=== PATIENT | female | born 1990 | race Caucasian/White ===

== ENCOUNTER 2020-08-14 12:07 | Outpatient (CLI) | payer OTHER, SELFPAY ==
[2020-08-14 12:46] LABS: Anion Gap 4 mmol/L (8-16); Blood Urea Nitrogen 12 mg/dL (7-17); Calcium 9.3 mg/dL (8.4-10.2); Carbon Dioxide 30 mmol/L (22-30); Chloride 104 mmol/L (98-107); Cholesterol 231 mg/dL (0-200); Estimated Glomerular Filt Rate > 60; Glucose 94 mg/dL (65-105); HDL Direct 48 mg/dL; Sodium 138 mmol/L (137-145); Triglycerides 143 mg/dL (<150)
[2020-08-14 12:58] LABS: LDL Cholesterol Direct 147 mg/dL
[2020-08-14 13:38] LABS: Vitamin D 25 Hydroxy 25.5 ng/mL
== END 2020-08-14 12:08 | disposition home or self-care (01) ==
PROVIDERS: PCP Family Medicine; Visit Provider Nurse Practitioner Family
DX: R53.83 Other fatigue (principal); Z13.1 Encounter for screening for diabetes mellitus; Z13.29 Encounter for screening for other suspected endocrine disorder; E55.9 Vitamin D deficiency, unspecified; Z13.220 Encounter for screening for lipoid disorders; L65.9 Nonscarring hair loss, unspecified
CPT/HCPCS: 36415; 80048; 80061; 82306; 82607; 84443

== ENCOUNTER 2020-08-21 15:32 | Outpatient (CLI) | payer OTHER, SELFPAY | END 2020-08-21 15:33 | disposition home or self-care (01) | LOC: ANHCOVIDVC 15:32 | PROVIDERS: PCP Family Medicine | DX: Z23 Encounter for immunization (principal) | CPT/HCPCS: 0001A; 91300 ==

== ENCOUNTER 2020-09-11 15:29 | Outpatient (CLI) | payer OTHER, SELFPAY | END 2020-09-11 15:30 | disposition home or self-care (01) | LOC: ANHCOVIDVC 15:30 | PROVIDERS: PCP Family Medicine | DX: Z23 Encounter for immunization (principal) | CPT/HCPCS: 0002A; 91300 ==

== ENCOUNTER 2020-12-11 13:00 | Outpatient (CLI) | payer OTHER, SELFPAY ==
--- NOTE | ~2020-12-11 | XR_ITS ---
EXAMINATION:XR_[id number]_CR DATE: 12/11/2020 13:15 INDICATION: Neck pain TECHNIQUE: AP, lateral, and odontoid views of the cervical spine are provided. COMPARISON: None FINDINGS: Alignment is normal. The odontoid is intact. No fracture is identified. Vertebral body heig hts and disk spaces are normal. Prevertebral soft tissues are normal. IMPRESSION: 1. Unremarkable cervical spine. Reviewed, dictated and finalized at location B.
== END 2020-12-11 13:01 | disposition home or self-care (01) ==
PROVIDERS: PCP Family Medicine; Visit Provider Nurse Practitioner Family
DX: M54.2 Cervicalgia (principal)
CPT/HCPCS: 72040

== ENCOUNTER 2021-08-20 11:52 | Outpatient (CLI) | payer OTHER, SELFPAY ==
[2021-08-20 12:31] LABS: Basophils Percent Auto 0.3 % (0.2-1.2); Eosinophils Absolute Auto 0.1 K/mm3 (0-0.3); Eosinophils Percent Auto 1.1 % (0-4.4); Hematocrit 33.1 % (37.0-47.0); Hemoglobin 10.6 g/dL (12.0-15.0); Immature Granulocyte Absolute 0.04 K/mm3 (0.00-0.031); Immature Granulocyte Percent A 0.5 % (0-0.5); Lymphocytes Absolute Auto 1.44 K/mm3 (0.9-3.2); Lymphocytes Percent Auto 16.5 % (18.3-44.2); Mean Corpuscular Hemoglobin 28.1 pg (26-34); Mean Corpuscular Volume 87.8 fl (80-100); Mean Platelet Volume 10.5 fl (7.4-10.4); Monocytes Absolute Auto 0.7 K/mm3 (0.1-0.6); Monocytes Percent Auto 8.2 % (2.6-8.5); Neutrophils Absolute Auto 6.4 K/mm3 (1.3-6.7); Neutrophils Percent Auto 73.4 % (45.5-73.1); Platelet Count Result 345 k/mm3 (150-375); Red Blood Count 3.77 M/mm3 (4.2-5.4); Red Cell Distribution Width 14.9 % (11.5-14.5); White Blood Count 8.7 K/mm3 (4.5-10.0)
[2021-08-20 12:50] LABS: Anion Gap 7 mmol/L (8-16); Blood Urea Nitrogen 10 mg/dL (7-17); Calcium 8.9 mg/dL (8.4-10.2); Carbon Dioxide 28 mmol/L (22-30); Chloride 102 mmol/L (98-107); Estimated Glomerular Filt Rate > 60; Glucose 85 mg/dL (65-110); Potassium 3.9 mmol/L (3.4-5.0); Sodium 137 mmol/L (137-145)
== END 2021-08-20 11:53 | disposition home or self-care (01) ==
LOC: ANHLAB 11:54
PROVIDERS: PCP Family Medicine; Visit Provider Nurse Practitioner Family
DX: R10.9 Unspecified abdominal pain (principal); R31.9 Hematuria, unspecified
CPT/HCPCS: 36415; 80048; 85025

== ENCOUNTER 2021-08-20 16:20 | Outpatient (CLI) | payer OTHER, SELFPAY ==
--- NOTE | ~2021-08-20 | XR_ITS ---
EXAMINATION: XR abdomen/kub 1V DATE: 08/20/2021 16:41 INDICATION: Low to middle abdominal pain radiating to the left back TECHNIQUE: A supine view of the abdomen on 2 radiographs was obtained. COMPARISON: CT dated 04/22/2019 FINDINGS: Moderate amount of stool scattered throughout the colon. No dilated gas-filled loops of bowel to sugg est obstruction. Lung bases are clear. Heart size is normal. Bones are unremarkable. IMPRESSION: 1. Normal bowel gas pattern. Reviewed, dictated and finalized at location A. TARY COOK
== END 2021-08-20 16:21 | disposition home or self-care (01) ==
LOC: ANHIMG 16:23
PROVIDERS: PCP Family Medicine; Visit Provider Nurse Practitioner Family
DX: R10.9 Unspecified abdominal pain (principal); R31.9 Hematuria, unspecified
CPT/HCPCS: 36415; 74018; 80048; 85025

== ENCOUNTER 2021-08-25 08:24 | Outpatient (CLI) | payer OTHER, SELFPAY ==
--- NOTE | ~2021-08-25 | CT_ITS ---
EXAMINATION: CT abdomen pelvis wo con DATE: 08/25/2021 08:39 INDICATION: Hematuria, unspecified. TECHNIQUE: Computed tomography (CT) of the abdomen and pelvis was performed without intravenous contr ast. Automated exposure control and iterative reconstruction technique were employed. The dose-length product was 329.91 mGy-cm. COMPARISON: CT abdomen and pelvis 04/22/2019 FINDINGS: The visualized portions of the lung bases are clear without pneumonia or pleural effusion. The heart size is normal. No pericardial effusion. The liver, gallbladder, spleen, pancreas, adrenal glands, and kidneys are normal. There is hematoma in the pelvis centered at the left adnexa measuring 8.5 x 8.9 x 10.2 cm. There are no dilated loops of bowel. The appendix is normal. There is fat stran ding in the greater omentum, likely edema or inflammation. There are no pathologically enlarged lymph nodes. IMPRESSION: 1. Hemoperitoneum centered at the left adnexa. Reviewed, dictated and finalized at location A.
== END 2021-08-25 08:25 ==
LOC: MICIMG 08:26
PROVIDERS: PCP Family Medicine; Visit Provider Nurse Practitioner Family
DX: R10.9 Unspecified abdominal pain (principal); R31.9 Hematuria, unspecified; K66.1 Hemoperitoneum
CPT/HCPCS: 74176

== ENCOUNTER 2021-08-25 09:21 | Observation (INO) | payer OTHER, SELFPAY ==
[2021-08-25] VITALS (9 sets, daily range): BP systolic 117–131; BP diastolic 67–79; PULSE 78–106; RESP 16–18; TEMP 36.6–37.2; O2SAT 97–100; BMI 27.1
--- NOTE | ~2021-08-25 | US_ITS ---
EXAMINATION: US right upper quadrant DATE: 08/26/2021 14:51 INDICATION: Abnormal liver function tests. TECHNIQUE: Multiple grayscale and Doppler ultrasound images of the abdomen were obtained. COMPARISON: CT abdomen and pelvis 08/25/2021 FINDINGS: The visualized portions of the head and body of the pancreas are normal. The liver is minnie l without focal lesion. There is normal flow in main portal vein. The gallbladder is contracted. No g allstones. There is no sonographic Moser sign. The common duct is normal and measures 4 mm. IMPRESSION: 1. Normal right upper quadrant ultrasound. Reviewed, dictated and finalized at location A.
--- NOTE | ~2021-08-25 | US_ITS ---
EXAMINATION: US pelvic complete w TV DATE: 08/25/2021 10:56 INDICATION: Left abdominal pain. Hematoma. TECHNIQUE: Multiple transabdominal and endovaginal sonographic images of the pelvis were obtained. COMPARISON: CT abdomen and pelvis dated 08/25/2021 FINDINGS: The uterus measures 7.4 x 4.3 x 5.8 cm. The endometrial complex measures 1.5 cm in thickness with sm all amount of central anechoic fluid within the endometrial canal at the fundus. The right ovary ernestina ures 3.9 x 2.7 x 2.7 cm. With a few subcentimeter anechoic follicles in the right ovary. The left ova ry measures 5.5 x 4.4 x 3.6 cm. There is a 3.4 cm hypoechoic lesion within the left ovary with corres ponding relatively low but greater than simple fluid attenuation on the prior smoking suggesting eith er a hemorrhagic cyst or endometrioma. Vascular flow with arterial waveforms at both the left and rig ht ovaries on color Doppler. 7.6 x 7.1 x 5.3 cm heterogeneous region of mixed echogenicity and hypoec hoic echogenicity situated between the left ovary and the uterus which is without internal vascular f low on color Doppler imaging and with relatively high attenuation on prior CT, all findings favoring a hematoma. There is no other anechoic free fluid in the pelvis. IMPRESSION: 1. 7.6 x 7.1 x 5.3 similar collection of hemorrhage/hemoperitoneum along side the left ovary. 2. 3.4 cm hypoechoic lesion in the left ovary which could represent either an endometrioma or hemorrh agic cyst. Reviewed, dictated and finalized at location A. IMPRESSION: 1. 7.6 x 7.1 x 5.3 similar collection of hemorrhage/hemoperitoneum along side t he left ovary. 2. 3.4 cm hypoechoic lesion in the left ovary which could represent either an e ndometrioma or hemorrhagic cyst.
[2021-08-25] MEDS: SODIUM CHLORIDE 0.9% IV 1,000 ML 999 ML IV CONT (09:41)
[2021-08-25 09:44] LABS: Basophils Percent Auto 0.2 % (0.2-1.2); Eosinophils Absolute Auto 0.1 K/mm3 (0-0.3); Eosinophils Percent Auto 2.6 % (0-4.4); Hematocrit 27.8 % (37.0-47.0); Hemoglobin 8.9 g/dL (12.0-15.0); Immature Granulocyte Absolute 0.02 K/mm3 (0.00-0.031); Immature Granulocyte Percent A 0.4 % (0-0.5); Lymphocytes Absolute Auto 0.57 K/mm3 (0.9-3.2); Lymphocytes Percent Auto 11.2 % (18.3-44.2); Mean Corpuscular Hemoglobin 27.9 pg (26-34); Mean Corpuscular Volume 87.1 fl (80-100); Mean Platelet Volume 9.8 fl (7.4-10.4); Monocytes Absolute Auto 0.5 K/mm3 (0.1-0.6); Neutrophils Absolute Auto 3.8 K/mm3 (1.3-6.7); Neutrophils Percent Auto 75.6 % (45.5-73.1); Platelet Count Result 206 k/mm3 (150-375); Red Blood Count 3.19 M/mm3 (4.2-5.4); Red Cell Distribution Width 15.9 % (11.5-14.5); White Blood Count 5.1 K/mm3 (4.5-10.0)
--- NOTE | 2021-08-25 09:47 | PC.NURSE ---
notified pt that we need a urine sample. pt states she just went before she came and is unable to go at this time. pt declining straight cath.
--- NOTE | 2021-08-25 09:55 | ED.GENADULT ---
HPI - General Adult General Chief complaint: Abdominal Pain <Raven Viveros APRN - Last Filed: 08/25/21 18:00> Stated complaint: abnormal CT <Raven Viveros APRN - Last Filed: 08/25/21 18:00> Time Seen by Provider: 08/25/21 09:33 <Raven Viveros APRN - Last Filed: 08/25/21 18:00> Source: patient <Raven Viveros APRN - Last Filed: 08/25/21 18:00> Mode of arrival: ambulatory <Raven Viveros APRN - Last Filed: 08/25/21 18:00> Limitations: no limitations <Raven Viveros APRN - Last Filed: 08/25/21 18:00> History of Present Illness HPI narrative: 30-year-old female sent here today by her doctor's office. Patient was seen a week ago for left lower abdominal pain and flank pain. LEGAL CLERK was highly suspicious for kidney stone as patient has a history of kidney stones about a year ago. CT obtained today showing a hematoma in the pelvis centered at the left adnexa measuring 8.5 x 8.9 x 10.2 cm. Patient currently rating pain 3/10. Pateint is not established with an OB at this time. <Raven Viveros APRN - Last Filed: 08/25/21 18:00> Related Data Home medications: Home Medications Medication Instructions Recorded Confirmed famotidine 10 mg tablet 10 mg PO PRN PRN MDD 10 08/13/20 08/25/21 <Raven Viveros APRN - Last Filed: 08/25/21 18:00> Allergies/adverse reactions: Allergies Allergy/AdvReac Type Severity Reaction Status Date / Time morphine Allergy Unknown Hives Verified 08/25/21 09:25 <Raven Viveros APRN - Last Filed: 08/25/21 18:00> Review of Systems Review of Systems: CONSTITUTIONAL: Denies fever, chills, or sweats. EYES: Denies visual changes, redness, or discharge. ENT: Denies rhinorrhea, congestion, sore throat, or otalgia. CARDIOVASCULAR: Denies chest pain, palpitations, or edema. RESPIRATORY: Denies cough or dyspnea. GASTROINTESTINAL: Left lower abdominal pain. Denies nausea, vomiting, or diarrhea. GENITOURINARY: Denies dysuria or hematuria. SKIN: Denies rash or itching. MUSCULOSKELETAL: Left lower back pain. Denies joint pain, or myalgia. NEUROLOGIC: Denies headache, numbness, dizziness, or weakness. PSYCHIATRIC: Denies anxiety or depression. <Raven Viveros APRN - Last Filed: 08/25/21 18:00> [facility] [place] Past Medical History Medical History: Medical History BMI 25.0-25.9,adult BMI 27.0-27.9,adult BMI 28.0-28.9,adult BMI 29.0-29.9,adult Dietary counseling and surveillance (02/26/16) Dizziness Dizziness and giddiness Overweight (07/10/15) Preeclampsia Pyelonephritis Telogen effluvium Tinea corporis Traumatic ulcer of oral mucosa <Raven Viveros APRN - Last Filed: 08/25/21 18:00> Surgical History Surgical History: Surgical History History of section History of tubal ligation <Raven Viveros APRN - Last Filed: 08/25/21 18:00> Family History Family History: Family History Mother Hypertension Cerebrovascular accident Diabetes mellitus Asthma Father Patient's father is in good health Substance abuse Anxiety Sibling Patient's sister is in good health Patient's brother is in good health Anxiety Grandparent Diabetes mellitus Hypertension Cerebrovascular accident <Raven Viveros APRN - Last Filed: 08/25/21 18:00> Social History Social History: Social History Second hand tobacco smoke exposure: Yes Alcohol intake: never Substance use: former Substance use type: marijuana Other substance usage details: edibles Additional living arrangements comments: and kids 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 Gender identity (if verbalized by the patient): Female Sexual Orientation (if Verbalized by the Patient): Strai
[2021-08-25 09:56] LABS: Alanine Aminotransferase 62 U/L (4-35); Albumin Level 4.2 g/dL (3.5-5.1); Alkaline Phosphatase 128 U/L (38-126); Anion Gap 8 mmol/L (8-16); Aspartate Amino Transferase 49 U/L (14-36); Bilirubin,Total 1.3 mg/dL (0.2-1.3); Blood Urea Nitrogen 9 mg/dL (7-17); Calcium 8.9 mg/dL (8.4-10.2); Carbon Dioxide 27 mmol/L (22-30); Chloride 104 mmol/L (98-107); Estimated CRCL calculation 99 ml/min; Estimated Glomerular Filt Rate > 60; Glucose 110 mg/dL (65-110); Potassium 3.5 mmol/L (3.4-5.0); Sodium 139 mmol/L (137-145)
--- NOTE | 2021-08-25 10:42 | PC.NURSE ---
pt in ultrasound at this time.
[2021-08-25 10:46] LABS: Prothrombin Time 13.2 Seconds (11.1-14.7)
[2021-08-25 10:50] LABS: Appearance Urine Cloudy (Clear); Bilirubin Urine Negative (Negative); Blood Urine Negative (Negative); Color Urine Yellow (Yellow); Glucose Urine UA Negative (Negative); Ketones Urine Negative (Negative); Leukocyte Esterase Ur Trace LEU/UL (Negative); Nitrate Urine Negative (Negative); Protein Urine Negative (Negative); Specific Grav Ur 1.015 (1.001-1.035); pH Urine 6.5 (5.0-9.0)
[2021-08-25 11:06] LABS: Add Urine Microscopic? YES; WBC Urine 0-3 /hpf (0-3)
[2021-08-25 11:07] LABS: Bacteria Urine 2+ /hpf; Mucus Urine Few /lpf; Squamous Epithelial Cell Urine Many /hpf (Few)
[2021-08-25] MEDS: fentaNYL CITRATE INJ (*CRX) 100 MCG/2 ML VIAL 25 MCG IV PUSH (12:04)
[2021-08-25 13:07] LABS: Hematocrit 25.1 % (37.0-47.0); Hemoglobin 8.1 g/dL (12.0-15.0)
--- NOTE | 2021-08-25 13:52 | PC.NURSE ---
called for nurse to nurse report. will call back in 10 minutes.
[2021-08-25 14:00] LABS: Partial Thromboplastin Time 38.7 SECONDS (22.3-36.8)
[2021-08-25] MEDS: HYDROmorphone HCL INJ (*CRX) 1 MG/ML SYR 0.5 MG IV PUSH ×2 (15:15→20:56)
[2021-08-25] MEDS: ONDANSETRON INJ 4 MG/2 ML VIAL IV PUSH ×2 (16:55→20:56)
[2021-08-25 19:34] LABS: Hematocrit 26.8 % (37.0-47.0); Hemoglobin 8.6 g/dL (12.0-15.0)
--- NOTE | 2021-08-25 20:08 | PC.NURSE ---
This patient, Ewa Chacon, was admitted to Medical Room 345-01. Patient/family oriented to hospital policies and general routines including ID bracelet, bed and alarms, visiting hours, pain management, procedures, bathroom and other care routines, personal items, smoking policy, room service/diet, and visiting hours. Information on how to activate the Rapid Response Team has been discussed. Patient/Family are encouraged to report perceived risks to care and to ask questions if they do not understand what they are told or what they should do.
--- NOTE | 2021-08-25 22:35 | PM.IMHP ---
H&P: HPI History of Present Illness Date/Time: 08/25/21 22:35 Patient prior tubal ligation presented to ED with complaints of left lower quadrant for over a weeks that was not helped with antibiotic and antiinflammatory that was started by her PCP for suspected kidney stones with her having a history of kidney stones. In the ED her pain initially was 2-3. She had a CT which showed hemoperitoneum centered at the left adnexa. A pelvic ultrasound was ordered and showed 7.6 x 7.1 x 5.3 similar collection of hemorrhage/hemoperitoneum along side the left ovary and 3.4 cm hypoechoic lesion in the left ovary which could represent either an endometrioma or hemorrhagic cyst. Hemoglobin decreased from 10.8 on 08/20 to 8.9 today. She denies fever or chills or dizzinessl She denies a history of endometriosis. Pain in ED 2-3 which did get worse after the ultrasound and improved with Fentanyl. Chief Complaint: ABdominal pain Review of Systems Review of Systems: All systems reviewed & are unremarkable except as noted in HPI and below Cardiovascular: Cardiovascular: Reports no additional cardiovascular complaints, Denies chest pain and Denies dyspnea Respiratory: Respiratory: Reports no additional respiratory complaints and Denies dyspnea Gastrointestinal: Gastrointestinal: Reports abdominal pain, Denies change in bowel habits, Denies diarrhea, Denies nausea and Denies vomiting Genitourinary: Genitourinary: Reports pelvic pain Integumentary/Breasts: Skin/Breast: Reports system reviewed and no additional complaints, except as docu Neurologic: Reports system reviewed and no additional complaints, except as documented PMFSH Past Medical History Medical History BMI 25.0-25.9,adult BMI 27.0-27.9,adult BMI 28.0-28.9,adult BMI 29.0-29.9,adult Dietary counseling and surveillance (02/26/16) Dizziness Dizziness and giddiness Overweight (07/10/15) Preeclampsia Pyelonephritis Telogen effluvium Tinea corporis Traumatic ulcer of oral mucosa Surgical History Surgical History History of section History of tubal ligation Family History Family History Mother Hypertension Cerebrovascular accident Diabetes mellitus Asthma Father Patient's father is in good health Substance abuse Anxiety Sibling Patient's sister is in good health Patient's brother is in good health Anxiety Grandparent Diabetes mellitus Hypertension Cerebrovascular accident Social History Social History Smoking status: Never smoker Second hand tobacco smoke exposure: Yes Alcohol intake: never Substance use: never Substance use type: marijuana Other substance usage details: edibles Additional living arrangements comments: and kids 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 Gender identity (if verbalized by the patient): Female Sexual Orientation (if Verbalized by the Patient): Straight or Heterosexual Spiritual care concerns: No Agree to blood products: Yes Meds Home Medications and Allergies Home Medications Medication Instructions Recorded Confirmed Type escitalopram oxalate 10 mg tablet 10 mg PO DAILY #90 tablet 08/05/21 08/25/21 Rx ciprofloxacin HCl 500 mg tablet 500 mg PO Q12H #14 tablet 08/22/21 08/25/21 Rx Allergies Allergy/AdvReac Type Severity Reaction Status Date / Time morphine Allergy Unknown Hives Verified 08/25/21 09:25 Vital Signs Vital Signs - 24 hr 08/25/21 09:25 08/25/21 10:56 08/25/21 12:51 Temperature 98.0 F Pulse Rate 106 H 92 86 Respiratory Rate 16 18 16 Blood Pressure 131/77 126/70 118/78 Pulse Oximetry 100 100 100 08/25/21 12:57 08/25/21 14:18 08/25/21 15:41 Temperature 98.3 F 99.0 F Pulse Rate
[2021-08-25 23:38] LABS: SPREG INTERNAL CONTROL Positive; Serum Qual hCG Negative
[2021-08-26 05:59] LABS: Alanine Aminotransferase 63 U/L (4-35); Aspartate Amino Transferase 70 U/L (14-36)
[2021-08-26 07:01] VITALS: BP 119/62; PULSE 79; RESP 18; TEMP 36.6; O2SAT 97
[2021-08-26 07:02] VITALS: BP 120/64; PULSE 80; RESP 18; TEMP 36.6; O2SAT 98
[2021-08-26 08:00] VITALS: PULSE 80; RESP 18; O2SAT 98
--- NOTE | 2021-08-26 10:21 | PM.GYNPNOP ---
WAREHOUSE DELIVERY MANAGER - A/P Assessment and plan (1) Abdominal pain: Qualifiers: Abdominal location: lower abdomen, unspecified Qualified Code(s): R10.30 - Lower abdominal pain, unspecified Code(s): R10.9 - Unspecified abdominal pain Status: Acute Assessment and Plan: 1. Hemorrhagic ovarian cyst. Symptoms improved. No signs of hemodynamic instability. Hemoglobin stable. Recommend initiating nuvaring. Will follow up in 2 weeks. Anticipate will be discharged after RUQ ultrasound. She has taken minimal pain meds in hospital. (2) Elevated liver enzymes: Code(s): R74.8 - Abnormal levels of other serum enzymes Status: Acute Assessment and Plan: Asymptomatic. Right upper quadrant ultrasound ordered. Time Spent With Patient Time: Total time spent is greater than 50% in coordination of care (as documented) at patient's floor/unit and/or counseling patient: Time with patient: less than 15 minutes WAREHOUSE DELIVERY MANAGER- PN:Subj Post-Op Subjective Date/time seen: 08/26/21 10:21 She states her pain this morning is a 2/10. She last had the lot medicine last p.m.. She is not nauseous. She did tolerate food yesterday. She has been NPO after midnight. Feels like her pain is better. I discussed with her that her hemoglobin was stable from since she had been in the emergency room. Exam Const: General: comfortable and no acute distress Eyes: General: appearance normal, both eyes and all related structures Resp: Effort & Inspection: normal respiratory effort GI: Other: Soft no guarding no rebound less tenderness in the left lower quadrant nondistended Extrem: General: normal to inspection Other: nontender Psych: Appearance: grossly normal WAREHOUSE DELIVERY MANAGER - PN: Obj Data Vital Signs Vital Signs: Vital Signs - 24 hr 08/25/21 10:56 08/25/21 12:51 08/25/21 12:57 Temperature Pulse Rate 92 86 101 H Respiratory Rate 18 16 16 Blood Pressure 126/70 118/78 118/78 Pulse Oximetry 100 100 100 08/25/21 14:18 08/25/21 15:41 08/25/21 16:18 Temperature 98.3 F 99.0 F Pulse Rate 78 85 Respiratory Rate 18 18 Blood Pressure 122/79 117/70 Pulse Oximetry 100 100 97 08/25/21 22:36 08/25/21 22:37 08/26/21 07:01 Temperature 97.8 F 98.0 F 97.8 F Pulse Rate 96 96 79 Respiratory Rate 18 18 18 Blood Pressure 119/67 121/68 119/62 Pulse Oximetry 100 100 97 08/26/21 07:02 08/26/21 08:00 Temperature 97.8 F Pulse Rate 80 80 Respiratory Rate 18 18 Blood Pressure 120/64 Pulse Oximetry 98 98 Intake/Output Intake/Output: Intake & Output 08/23/21 08/24/21 08/25/21 08/26/21 22:59 23:59 23:59 23:59 Intake Total 1240 1000 Output Total 200 600 Balance 1040 400 Meds/Results Medications: Active Medications Generic Name Dose Route Start Last Admin Trade Name Freq PRN Reason Stop Dose Admin Diphenhydramine HCl 12.5 mg 08/25/21 12:55 Diphenhydramine Hcl Inj 50 Mg/Ml Vial IV PUSH Q6H PRN itching Hydromorphone HCl 0.5 mg 08/25/21 12:45 08/25/21 20:56 Hydromorphone Hcl Inj (*Crx) 1 Mg/Ml Syr IV PUSH 0.5 mg Q4H PRN Administration Pain Rated 7-10 Ondansetron HCl 4 mg 08/25/21 12:45 08/25/21 20:56 Ondansetron Inj 4 Mg/2 Ml Vial IV PUSH 4 mg Q4H PRN Administration Nausea Radiology Results: ITS Impressions Pelvic/Transvag US 08/25/21 10:57 IMPRESSION: 1. 7.6 x 7.1 x 5.3 similar collection of hemorrhage/hemoperitoneum along side the left ovary. 2. 3.4 cm hypoechoic lesion in the left ovary which could represent either an endometrioma or hemorrhagic cyst. Labs CBC & Chem 7: 08/25/21 19:14 08/25/21 09:38 Labs: Laboratory Results - last 24 hr 08/25/21 08/25/21 08/25/21 09:38 10:20 10:20 Hgb Hct PT 13.2 INR 1.0 APTT 38.7 H AST ALT Serum HCG, Qual Urine Color Urine Appearance Urine pH Ur Specific [place] Urine Protein Urine Glucose (UA) Urine Ketones
[2021-08-26 14:56] VITALS: BP 113/66; PULSE 83; RESP 18; TEMP 37.3; O2SAT 100
[2021-08-28 05:30] LABS: CA-125 89 U/mL (<35)
--- NOTE | 2021-10-13 08:44 | PM.OBTRLD ---
OB - Triage/Final Diagnosis Visit Information Comments/Additional reasons for admission: I have assessed the risk for this patient, Ewa Chacon, and determined that she would benefit from observation care. Evaluation Laboratory results: Laboratory Tests 08/25/21 08/25/21 08/25/21 09:38 09:38 09:38 WBC 5.1 RBC 3.19 L Hgb 8.9 L Hct 27.8 L MCV 87.1 MCH 27.9 MCHC 32.0 RDW 15.9 H Plt Count 206 MPV 9.8 Immature Gran % (Auto) 0.4 Neut % (Auto) 75.6 H Lymph % (Auto) 11.2 L [place] % (Auto) 10.0 H Eos % (Auto) 2.6 Baso % (Auto) 0.2 Lymph # (Auto) 0.57 L [place] # (Auto) 0.5 Eos # (Auto) 0.1 Baso # (Auto) 0.0 Abs Immat Gran (auto) 0.02 Absolute Neuts (auto) 3.8 Absolute Nucleated RBC 0.0 Nucleated RBC % 0.0 PT INR APTT Sodium 139 Potassium 3.5 Chloride 104 Carbon Dioxide 27 Anion Gap 8 BUN 9 Creatinine 0.60 L Estim Creat Clear Calc 99 Estimated GFR > 60 Glucose 110 Calcium 8.9 Total Bilirubin 1.3 AST 49 H ALT 62 H Alkaline Phosphatase 128 H Total Protein 7.0 Albumin 4.2 CA 125 Antigen Serum HCG, Qual Urine Color Urine Appearance Urine pH Ur Specific [place] Urine Protein Urine Glucose (UA) Urine Ketones Ur Blood (Man) Urine Nitrate Urine Bilirubin Urine Urobilinogen Leukocyte Esterase Rfl Urine WBC Ur Squamous Epith Cells Urine Bacteria Urine Mucus Blood Type O Positive Antibody Screen Negative 08/25/21 08/25/21 08/25/21 10:20 10:20 10:20 WBC RBC Hgb Hct MCV MCH MCHC RDW Plt Count MPV Immature Gran % (Auto) Neut % (Auto) Lymph % (Auto) [place] % (Auto) Eos % (Auto) Baso % (Auto) Lymph # (Auto) [place] # (Auto) Eos # (Auto) Baso # (Auto) Abs Immat Gran (auto) Absolute Neuts (auto) Absolute Nucleated RBC Nucleated RBC % PT 13.2 INR 1.0 APTT 38.7 H Sodium Potassium Chloride Carbon Dioxide Anion Gap BUN Creatinine Estim Creat Clear Calc Estimated GFR Glucose Calcium Total Bilirubin AST ALT Alkaline Phosphatase Total Protein Albumin CA 125 Antigen 89 H Serum HCG, Qual Urine Color Urine Appearance Urine pH Ur Specific [place] Urine Protein Urine Glucose (UA) Urine Ketones Ur Blood (Man) Urine Nitrate Urine Bilirubin Urine Urobilinogen Leukocyte Esterase Rfl Urine WBC Ur Squamous Epith Cells Urine Bacteria Urine Mucus Blood Type Antibody Screen 08/25/21 08/25/21 08/25/21 10:24 13:02 19:14 WBC RBC Hgb 8.1 L 8.6 L Hct 25.1 L 26.8 L MCV MCH MCHC RDW Plt Count MPV Immature Gran % (Auto) Neut % (Auto) Lymph % (Auto) [place] % (Auto) Eos % (Auto) Baso % (Auto) Lymph # (Auto) [place] # (Auto) Eos # (Auto) Baso # (Auto) Abs Immat Gran (auto) Absolute Neuts (auto) Absolute Nucleated RBC Nucleated RBC % PT INR APTT Sodium Potassium Chloride Carbon Dioxide Anion Gap BUN Creatinine Estim Creat Clear Calc Estimated GFR Glucose Calcium Total Bilirubin AST ALT Alkaline Phosphatase Total Protein Albumin CA 125 Antigen Serum HCG, Qual Urine Color Yellow Urine Appearance Cloudy H Urine pH 6.5 Ur Specific [place] 1.015 Urine Protein Negative Urine Glucose (UA) Negative Urine Ketones Negative Ur Blood (Man) Negative Urine Nitrate Negative Urine Bilirubin Negative Urine Urobilinogen 2.0 H Leukocyte Esterase Rfl Trace H Urine WBC 0-3 Ur Squamous Epith Cells Many H Urine Bacteria 2+ H Urine Mucus Few H Blood Type Antibody Screen 08/25/21 08/26/21 08/26/21 19:14 05:23 05:23 WBC RBC
== END 2021-08-26 16:55 | disposition home or self-care (01) ==
LOC: ANHED 10:03 → ANH3MED 13:54
PROVIDERS: General Practice; Admitting Provider Obstetrics & Gynecology; Emergency Provider Nurse Practitioner Family; PCP Family Medicine; Visit Provider Obstetrics & Gynecology
DX: N83.209 Unspecified ovarian cyst, unspecified side (principal); K66.1 Hemoperitoneum; N83.9 Noninflammatory disorder of ovary, fallopian tube and broad ligament, unspecified; R74.8 Abnormal levels of other serum enzymes
CPT/HCPCS: 36415; 76705; 76830; 76856; 80053; 81001; 84450; 84460; 84703; 85014; 85018; 85025; 85610; 85730; 86304; 86850; 86900; 86901; 96361; 96374; 96375; 96376; 99285; G0378; J1170; J2405; J3010; J7030

== ENCOUNTER 2021-09-09 10:16 | Outpatient (CLI) | payer OTHER, SELFPAY ==
[2021-09-09 10:46] LABS: Alanine Aminotransferase 34 U/L (4-35); Albumin Level 4.5 g/dL (3.5-5.1); Alkaline Phosphatase 183 U/L (38-126); Aspartate Amino Transferase 37 U/L (14-36); Bilirubin,Total 0.9 mg/dL (0.2-1.3)
== END 2021-09-09 10:17 | disposition home or self-care (01) ==
LOC: ANHLAB 10:18
PROVIDERS: PCP Family Medicine; Visit Provider Obstetrics & Gynecology
DX: R74.8 Abnormal levels of other serum enzymes (principal)
CPT/HCPCS: 36415; 80076

== ENCOUNTER 2021-10-20 15:15 | Outpatient (CLI) | payer OTHER, SELFPAY ==
--- NOTE | ~2021-10-20 | US_ITS ---
EXAMINATION: US pelvic complete w TV DATE: 10/20/2021 15:51 INDICATION: Unspecified ovarian cyst TECHNIQUE: Multiple transabdominal and endovaginal sonographic images of the pelvis were obtained. COMPARISON: 08/25/2021 FINDINGS: The uterus measures 6.9 x 5.5 x 5.7 cm. The endometrial complex measures 10 mm. The right o vary measures 2.3 x 2.7 x 2.4 cm. The left ovary measures 5.8 x 6.9 x 5.9 cm. There is an approximate ly 4.5 x 3.8 cm complex hypoechoic mass of the left adnexa. In addition, there are areas of cystic ch saray in the left adnexa measuring up to 4.2 cm. There is normal vascular flow in the ovaries. There i s no free fluid in the pelvis. IMPRESSION: 1. Probable resolving hemoperitoneum and hemorrhagic cyst or endometrioma of the left adnexa. Continu ed follow-up ultrasound is recommended in 8-12 weeks. Reviewed, dictated and finalized at location A. IMPRESSION: 1. Probable resolving hemoperitoneum and hemorrhagic cyst or endometrioma of th e left adnexa. Continued follow-up ultrasound is recommended in 8-12 weeks.
== END 2021-10-20 15:16 ==
PROVIDERS: PCP Family Medicine; Visit Provider Obstetrics & Gynecology
DX: N83.209 Unspecified ovarian cyst, unspecified side (principal)
CPT/HCPCS: 76830; 76856

== ENCOUNTER 2021-10-21 12:15 | Outpatient (CLI) | payer OTHER, SELFPAY ==
[2021-10-25 03:10] LABS: CA-125 132 U/mL (<35)
== END 2021-10-21 12:16 | disposition home or self-care (01) ==
LOC: ANHLAB 12:17
PROVIDERS: PCP Family Medicine; Visit Provider Obstetrics & Gynecology
DX: N83.209 Unspecified ovarian cyst, unspecified side (principal)
CPT/HCPCS: 36415; 86304

== ENCOUNTER 2022-10-09 13:47 | Outpatient (CLI) | payer OTHER, SELFPAY ==
--- NOTE | ~2022-10-09 | CT_ITS ---
EXAMINATION: CT abdomen pelvis w con DATE: 10/09/2022 14:18 INDICATION: Right lower quadrant abdominal pain. TECHNIQUE: Computed tomography (CT) of the abdomen and pelvis was performed with 100 mL Omnipaque 350 intravenous contrast. Automated exposure control and iterative reconstruction technique were employe d. The dose-length product was 466.93 mGy-cm. COMPARISON: CT abdomen and pelvis 08/25/2021 FINDINGS: The visualized portions of the lung bases are clear without pneumonia or pleural effusion. The heart size is normal. No pericardial effusion. The liver, gallbladder, spleen, pancreas, and adre nal glands are normal. There are cysts in the kidneys measuring up to 11 mm on the right. There are n o dilated loops of bowel. The appendix is normal. There are no pathologically enlarged lymph nodes. T here is no free intraperitoneal fluid. There is a 1.7 cm dominant follicle in right ovary. The bones are unremarkable. IMPRESSION: 1. No specific etiology for the patient's symptoms. Reviewed, dictated and finalized at location E.
[2022-10-09 14:55] LABS: Basophils Percent Auto 0.3 % (0.2-1.2); Eosinophils Absolute Auto 0.1 K/mm3 (0-0.3); Eosinophils Percent Auto 0.9 % (0-4.4); Hematocrit 36.5 % (37.0-47.0); Hemoglobin 11.6 g/dL (12.0-15.0); Immature Granulocyte Absolute 0.02 K/mm3 (0.00-0.031); Immature Granulocyte Percent A 0.3 % (0-0.5); Lymphocytes Absolute Auto 1.36 K/mm3 (0.9-3.2); Lymphocytes Percent Auto 17.6 % (18.3-44.2); Mean Corpuscular HGB Conc 31.8 g/dl (32-36); Mean Corpuscular Hemoglobin 27.9 pg (26-34); Mean Corpuscular Volume 87.7 fl (80-100); Monocytes Absolute Auto 0.4 K/mm3 (0.1-0.6); Monocytes Percent Auto 5.7 % (2.6-8.5); Neutrophils Absolute Auto 5.8 K/mm3 (1.3-6.7); Neutrophils Percent Auto 75.2 % (45.5-73.1); Platelet Count Result 275 k/mm3 (150-375); Red Blood Count 4.16 M/mm3 (4.2-5.4); Red Cell Distribution Width 14.3 % (11.5-14.5); White Blood Count 7.7 K/mm3 (4.5-10.0)
[2022-10-09 15:00] LABS: Alanine Aminotransferase 19 U/L (6-35); Albumin Level 4.3 g/dL (3.5-5.1); Alkaline Phosphatase 77 U/L (38-126); Amylase 62 U/L (30-110); Anion Gap 4 mmol/L (8-16); Aspartate Amino Transferase 24 U/L (14-36); Blood Urea Nitrogen 9 mg/dL (7-17); Calcium 8.5 mg/dL (8.4-10.2); Carbon Dioxide 29 mmol/L (22-30); Chloride 100 mmol/L (98-107); Estimated Glomerular Filt Rate > 60; Glucose 80 mg/dL (65-110); Lipase 58 U/L (23-300); Sodium 133 mmol/L (137-145)
== END 2022-10-09 13:48 | disposition home or self-care (01) ==
PROVIDERS: PCP Family Medicine; Visit Provider Nurse Practitioner Family
DX: R19.8 Other specified symptoms and signs involving the digestive system and abdomen (principal); R10.9 Unspecified abdominal pain
CPT/HCPCS: 36415; 74177; 80053; 82150; 83690; 85025; Q9967

== ENCOUNTER 2024-12-13 12:22 | Outpatient (CLI) | payer BC, SELFPAY ==
[2024-12-13 13:10] LABS: Hematocrit 41.2 % (37.0-47.0); Hemoglobin 13.4 g/dL (12.0-15.0); Immature Granulocyte Percent A 0.2 % (0-0.5); Lymphocytes Absolute Auto 1.16 K/mm3 (0.9-3.2); Mean Corpuscular HGB Conc 32.5 g/dl (32-36); Mean Corpuscular Hemoglobin 29.7 pg (26-34); Mean Corpuscular Volume 91.4 fl (80-100); Nucleated Red Blood Cells Absolute Auto 0.000 K/mm3 (0.0-0.012); Nucleated Red Blood Cells Perc 0.0 % (0.0-0.2); Platelet Count Result 271 k/mm3 (150-375); Red Blood Count 4.51 M/mm3 (4.2-5.4); White Blood Count 5.3 K/mm3 (4.5-10.0)
[2024-12-13 13:30] LABS: Cholesterol 210 mg/dL (0-200); HDL Direct 66 mg/dL; Triglycerides 89 mg/dL (<150)
[2024-12-13 14:03] LABS: Thyroid Stimulating Hormone 0.982 uIU/mL (0.465-4.680)
== END 2024-12-13 12:23 | disposition home or self-care (01) ==
LOC: ANHLAB 12:23
PROVIDERS: PCP Family Medicine; Visit Provider Nurse Practitioner Family
DX: Z13.1 Encounter for screening for diabetes mellitus (principal); Z13.29 Encounter for screening for other suspected endocrine disorder; Z13.220 Encounter for screening for lipoid disorders
CPT/HCPCS: 36415; 80061; 84443; 85025

== ENCOUNTER 2024-12-18 10:54 | Outpatient (CLI) | payer BC, SELFPAY ==
--- NOTE | ~2024-12-18 | XR_ITS ---
XR abdomen/kub 1V 12/18/2024 11:11 INDICATION: Left lower quadrant pain TECHNIQUE: KUB COMPARISON: None FINDINGS: Bowel gas pattern is normal. Moderate colonic fecal loading. There is no evidence of free a ir, mass, organomegaly, ascites or obstruction. No abnormal calculi are seen. The bones appear inta ct. IMPRESSION: 1: No acute abdominal abnormality identified. Reviewed, dictated and finalized at location A.
--- NOTE | ~2024-12-18 | CT_ITS ---
Non-contrast CT scan of the Abdomen and Pelvis Clinical indication: Left lower quadrant pain Technique: 2.5 mm axial scans were obtained through the abdomen and pelvis without intravenous or or al contrast. Dose reduction technique was used on this scan by utilizing automated exposure control a nd iterative reconstruction technique. The dose-length product (DLP) was 286.41 mGy-cm. COMPARISON: 10/09/2022 Findings: Images through the lung bases reveal no abnormalities. There is no evidence of renal or ureteral calculi. The kidneys and the ureters are nondilated. The liver, spleen, pancreas, gallbladder, and adrenals appear normal. There is no aortic aneurysm. There is no evidence of bowel obstruction. Images through the pelvis were performed. There is no evidence of ascites or lymphadenopathy. Urinary bladder unremarkable. No pelvic mass seen. Impression: No significant abnormality seen. Reviewed, dictated and finalized at [facility]. Impression: No significant abnormality seen.
== END 2024-12-18 10:55 | disposition home or self-care (01) ==
LOC: MICIMG 10:55
PROVIDERS: PCP Family Medicine; Visit Provider Nurse Practitioner Family
DX: R10.32 Left lower quadrant pain (principal); R10.9 Unspecified abdominal pain
CPT/HCPCS: 74018; 74176

== ENCOUNTER 2025-04-03 13:38 | Outpatient (CLI) | payer BC, SELFPAY ==
[2025-04-03 14:49] LABS: Anion Gap 8 mmol/L (4-12); Blood Urea Nitrogen 12 mg/dL (7-17); Calcium 9.3 mg/dL (8.4-10.2); Carbon Dioxide 29 mmol/L (22-30); Chloride 102 mmol/L (98-107); Estimated Glomerular Filt Rate > 60; Glucose 72 mg/dL (65-110); Potassium 4.2 mmol/L (3.4-5.0); Sodium 139 mmol/L (137-145)
[2025-04-03 15:25] LABS: Thyroid Stimulating Hormone 1.430 uIU/mL (0.465-4.680)
[2025-04-03 16:40] LABS: Free T4 Free Thyroxine 1.14 ng/dL (0.78-2.19)
== END 2025-04-03 13:39 | disposition home or self-care (01) ==
LOC: ANHLAB 13:39
PROVIDERS: PCP Family Medicine; Visit Provider Physician Assistant Medical
DX: F41.9 Anxiety disorder, unspecified (principal); F32.9 Major depressive disorder, single episode, unspecified; L65.9 Nonscarring hair loss, unspecified; R41.840 Attention and concentration deficit
CPT/HCPCS: 36415; 80048; 84439; 84443